=== PATIENT | female | born 2000 | race Caucasian/White ===

== ENCOUNTER 2025-04-23 18:05 | Emergency (ER) | payer MEDICAID, SELFPAY ==
--- NOTE | ~2025-04-23 | US_ITS ---
CLINICAL HISTORY: first trimester bleeding US OB 1st trimester transabdominal Comparison: None provided Findings: Single intrauterine . CRL: 44.6 mm. EGA: 11 weeks, 2 days. INEZ: November 10, 2025. Previously established gestational age: N/A. Normal yolk sac . Cardiac activity: 169 bpm. No subchorionic bleed. Right ovary measures focal 9 x 3.2 x 4.6 cm. Left ovary is not visualized. IMPRESSION: Single intrauterine estimated 11 weeks, 2 days gestational age by today's ultrasound criteria. This document has been electronically signed by: Tara Huffman MD on 04/23/2025 22:27:19
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
[2025-04-23 18:13] VITALS: BP 147/85; PULSE 104; RESP 18; TEMP 36.2; O2SAT 97; BMI 41.3
[2025-04-23 19:22] VITALS: BP 130/86; PULSE 98; TEMP 36.7; O2SAT 96
[2025-04-23 19:29] LABS: Appearance Urine Cloudy; Glucose Urine UA Negative (Negative); PH 7.0 (5.0-9.0); Specific Gravity - Urine 1.015 (1.005-1.025); UMIC TRIGGER UACC YES
[2025-04-23 19:36] LABS: Hematocrit 41.7 % (37.0-47.0); Hemoglobin 14.5 g/dl (12.0-16.0); Imm Gran Abs Auto 0.08 X10*3/uL (0.00-0.03); Imm Gran Pct Auto 0.8 % (0.0-0.4); Lymphocytes Absolute Auto 1.4 X10*3/uL (1.2-4.9); MANUAL DIFF FLAG SCAN; Mean Corpuscular HGB Conc 34.8 g/dl (31.0-35.0); Mean Corpuscular Hemoglobin 30.5 pg (27.0-33.0); Mean Corpuscular Volume 87.8 fL (80.0-98.0); NRBC Abs Auto 0.000 X10*3/uL (0.0-0.012); NRBC Pct Auto 0.0 /100WBC (0.0-0.2); PLT CLUMP 1; Red Blood Count 4.75 X10*6/uL (4.20-5.50); SCAN SMEAR FLAG 1
[2025-04-23 19:43] LABS: Alanine Aminotransferase 18 U/L (0-31); Albumin Level 4.2 g/dL (3.5-5.0); Alkaline Phosphatase 43 U/L (39-117); Anion Gap 11 (12-20); Aspartate Amino Transferase 24 U/L (5-31); Blood Urea Nitrogen 4 mg/dL (9-16); Calcium 9.5 mg/dL (8.4-10.2); Carbon Dioxide 21 mmol/L (22-29); Chloride 108 mmol/L (96-108); Creatinine Clr Calc Pharmacy 194.6; Estimated Glomerular Filt Rate > 60; Magnesium 1.9 mg/dL (1.6-2.6); Potassium 3.9 mmol/L (3.3-5.1); Sodium 136 mmol/L (135-145); Total Protein 7.1 g/dL (6.5-8.0)
[2025-04-23 19:55] LABS: White Blood Count 10.4 X10*3/uL (4.8-10.8)
[2025-04-23 20:04] LABS: UACC Culture Trigger YES
[2025-04-23] MEDS: diazePAM 10 MG/2 ML CARTRIDGE 2.5 MG IM (20:27)
--- NOTE | 2025-04-23 20:30 | PC.NURSE ---
Per YAIR Storey to give the patient diazepam. Pt medicated as charted.
--- NOTE | 2025-04-23 21:07 | PC.NURSE ---
Called to room by pt, pt states she was lying down when she felt wet and thought I peed myself but pt noted she had new onset vag bleeding. Pt denies abd pain, nausea at this time. Dr. Mock at bedside for eval. Awaiting new orders.
--- NOTE | 2025-04-23 21:35 | PC.NURSE ---
Called to room by tech, noted pt had passed products of conception on floor. Products retained in container, Dr. Hatfield at bedside, pt assisted back to bed after assisting w/ cleaning. U/S at bedside.
[2025-04-23 22:18] LABS: MANUAL DIFF FLAG NO
[2025-04-23 22:19] LABS: Hematocrit 40.3 % (37.0-47.0); Hemoglobin 13.8 g/dl (12.0-16.0); Imm Gran Abs Auto 0.07 X10*3/uL (0.00-0.03); Imm Gran Pct Auto 0.6 % (0.0-0.4); Lymphocytes Absolute Auto 1.8 X10*3/uL (1.2-4.9); Mean Corpuscular HGB Conc 34.2 g/dl (31.0-35.0); Mean Corpuscular Hemoglobin 30.0 pg (27.0-33.0); Mean Corpuscular Volume 87.6 fL (80.0-98.0); NRBC Abs Auto 0.000 X10*3/uL (0.0-0.012); NRBC Pct Auto 0.0 /100WBC (0.0-0.2); Platelet Count 294 X10*3/uL (160-400); Red Blood Count 4.60 X10*6/uL (4.20-5.50); White Blood Count 11.8 X10*3/uL (4.8-10.8)
[2025-04-23 23:33] VITALS: BP 112/63; PULSE 110; TEMP 36.8; O2SAT 97
--- NOTE | 2025-04-23 23:50 | PC.NURSE ---
pt states the bleeding had stopped, no pain at this time. education given regarding follow up and concerning signs/symptoms to return to ED.
[2025-04-23 23:51] VITALS: BP 112/63; PULSE 110; RESP 18; TEMP 36.8; O2SAT 97
[2025-04-24 00:52] LABS: Bacterial Vaginosis PCR POSITIVE (Negative); Candida Group PCR NOT DETECTED (Not Detect); Candida glab krusei PCR NOT DETECTED (Not Detect); Trichomonas vaginalis PCR NOT DETECTED (Not Detect)
[2025-04-24 01:22] LABS: CT PCR NOT DETECTED (Not Detect.); NG PCR NOT DETECTED (Not Detect.)
== END 2025-04-23 23:51 | disposition home or self-care (01) ==
PROVIDERS: Emergency Medicine; Physician Assistant Medical; Emergency Provider Emergency Medicine; PCP Internal Medicine
DX: O20.0 Threatened abortion (principal); R11.0 Nausea; R51.9 Headache, unspecified; Z3A.11 11 weeks gestation of pregnancy; Z79.899 Other long term (current) drug therapy
CPT/HCPCS: 36415; 76801; 80053; 81001; 81515; 83735; 84702; 85025; 86850; 86900; 86901; 87086; 87491; 87591; 88305; 96361; 96372; 96374; 96375; 99284; J1200; J2765; J3360

== ENCOUNTER → 2025-04-23 21:10 | Outpatient (BNV) | payer MEDICAID, SELFPAY | PROVIDERS: Emergency Provider Emergency Medicine; PCP Internal Medicine; Visit Provider Student in an Organized Health Care Education/Training Program | DX: O26.851 Spotting complicating pregnancy, first trimester (principal); Z3A.11 11 weeks gestation of pregnancy | CPT/HCPCS: 76801; 76817 ==